=== PATIENT | male | born 1965 | race African-American/Black ===

== ENCOUNTER 2019-10-18 14:48 | Emergency (ER) | payer OTHER ==
[~2019-10-18] VITALS: Ht 172.7 cm; Wt 66.2 kg
[2019-10-18 15:19] LABS: URINE BILIRUBIN NEGATIVE (Negative); URINE BLOOD 1+ (Negative); URINE CLARITY CLEAR; URINE COLOR YELLOW; URINE GLUCOSE-RANDOM* NEGATIVE (Negative); URINE KETONES TRACE (Negative); URINE LEUKOCYTES-REFLEX NEGATIVE (Negative); URINE NITRITE-REFLEX NEGATIVE (Negative); URINE PROTEIN (DIPSTICK) TRACE (Negative); URINE SPECIFIC GRAVITY >= 1.030 (1.005-1.035)
[2019-10-18 15:27] LABS: CASTS None Seen /LPF (None Seen); CRYSTALS None Seen /LPF (None Seen); SQUAMOUS 0-3 Few /LPF (0-3); URINE RBC 3-10 Few /HPF (0-2)
[2019-10-18 15:28] LABS: BACTERIA-REFLEX 1-9 Few /HPF (None Seen); URINE WBC-REFLEX 0-5 Rare /HPF (0-5)
[2019-10-18 15:41] LABS: ABSOLUTE NEUTROPHILS 3.6 thou/uL (1.4-8.2); EOSINOPHILS 6.2 % (0.0-3.0); HEMATOCRIT 43.7 % (42.0-52.0); HEMOGLOBIN 14.7 gm/dL (14.0-18.0); LYMPHOCYTES 34.6 % (24.0-44.0); MCH 30.1 pg (26.0-34.0); MCHC 33.7 g/dL (28.0-37.0); MCV 89.4 fL (80.0-100.0); MONOCYTES 7.7 % (1.0-8.0); PLATELET COUNT 246 thou/uL (150-400); POLYS 50.5 % (36.0-66.0); RBC 4.89 mil/uL (4.50-6.00); RDW 13.7 % (10.5-14.5); WBC 7.1 thou/uL (4.0-11.0)
[2019-10-18 15:58] LABS: CREATININE 1.2 mg/dL (0.7-1.3); POTASSIUM 3.7 mmol/L (3.5-5.1)
[2019-10-18 16:04] LABS: ALBUMIN 3.9 g/dL (3.4-5.0); TOTAL BILIRUBIN 0.6 mg/dL (0.2-1.0); TOTAL PROTEIN 8.1 g/dL (6.4-8.2)
[2019-10-18] MEDS ORDERED: COZAAR 25 MG TA25 M1 PO (17:38)
[2019-10-18] MEDS ORDERED: HYDROCHLOROTH12.5 M2 PO (17:38)
[2019-10-18] MEDS ORDERED: NORCO 7.5-3251 EACH PO (17:53)
[2019-10-18] MEDS ORDERED: BACTRIM DS TAB1 EACH PO (17:53)
[2019-10-18 18:16] VITALS: BP 124/80
== END 2019-10-18 18:16 | disposition home or self-care (01) ==
LOC: ER 14:48
PROVIDERS: Physician Assistant
DX: N39.0 Urinary tract infection, site not specified (principal); M54.5 Low back pain; N50.812 Left testicular pain; Z79.899 Other long term (current) drug therapy